=== PATIENT | female | born 1985 | race Caucasian/White ===

== ENCOUNTER 2017-07-25 05:23 | Inpatient (IN) | payer MEDICAID ==
--- NOTE | 2017-07-24 21:29 | PCM.LDHP ---
L&D History of Present Illness - General Date of Service: 07/25/17 Admit Problem/Dx: Admission Diagnosis/Problem Admission Diagnosis/Problem 07/24/17 21:14 41-2/7 week intrauterine , history of previous section with desire for repeat section. Source of Information: Patient History Limitations: Reports: No Limitations - History of Present Illness Introduction:: History of present illness: Sylvia is a 32-year-old 2 para 1001 white female who is admitted electively at 41-2/7 weeks gestational age for a repeat section. Her GRETA is 07/16/2017 is based upon a certain last menstrual period starting 10/09/2016 and supported by 3 ultrasounds. Ultrasounds done 2016, 01/12/2017 and 03/09/2017 R consistent with her LMP dating. The procedure of repeat section, its risks, benefits, alternatives and follow-up were all discussed with patient. She appears to understand and wishes to proceed. The patient had wished to do a trial labor after section to achieve a vaginal after section but had set a date by which she would undergo a repeat if she had not delivered. She has signed consent and wishes to proceed with surgery. 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 First delivery was by section for an abruption placenta, low amniotic fluid in [facility] on 01/06/2011 at 42 weeks gestational age. Her labor was 39 hours in length. Baby weighed 8 lbs. 10 oz. Was female and was named Shayy. LMP for this started on 2016, was definite, using no control time conception, periods occurring about every 28 day basis. Her first visit occurred early in the at 10-4/7 weeks on 12/22/2016. She was seen on a regular basis. Made normal weight gain 173.4 pounds up to 199 pounds for a 25.6 pound weight gain. Her vital signs remained stable throughout the course and her fundal height growth was appropriate with last fundal height at 41 cm. The baby never did descend below a -3 station. On last evaluation she was 2+ centimeters, 90% effaced, long. -4 station. During course of care she declined genetic testing. Her [place] depression screening score on 03/08/2017 was score 17/30. Patient managed this depressions symptomatology well. Her group B strep screen was negative. She had seasonal allergies. Desired to do a . Laboratory testing and showed blood to be O+ with negative antibody screen. First hemoglobin is 13.1, hematocrit was 39.1 and platelets are 224,000. Her Pap smear was negative. She is rubella immune, RPR is nonreactive. Hepatitis B surface antigen and HIV asses were negative as were the many and gonorrhea. Second trimester testing showed hemoglobin 10.3 at which time she was started on ferrous sulfate one by mouth twice a day. Questionable whether she continued this or not. Her platelet count was 255,000 and her 1 hour GTT was normal at 128. Group B strep screen was negative. Allergies: bee stings and seasonal environmental allergies. Drug allergies. Medications: 1. Budesonide 0.5 mg/2 mL inhalation suspension 2 times a day when necessary 2. Proventil inhaler up to 1-2 puffs every 4-6 hours when necessary for asthma 3. Fluticasone propionate 50 g/action one spray in each nostril twice daily 4. Calcium 500 mg tablets2 per day 5. vitamin D 2000 units daily 6. Montelukast sodium 10 mg daily 7. Albuterol sulfate inhalation nebulizer when necessary every 6 hours 8. Pro-air HFA inhalation aerosol solution every 4-6 hours 9. vitamins 1 daily 10. Folic acid 1 mg daily 11. Melatonin 5 mg Daily at Bedtime When Necessary Past medical history: 1. Anxiety/depression 2. Asthma 3. Keratosis 4. Abruption placenta 2010 5. Anemia secondary . 6. Abnormal Pap smear 2010 with HPV-high risk noted Family history: mother is alive and hasn't seen a doctor and 36 years. Father with congestive heart failure and VT with 6 bypass surgeries, diabetes type 2, COPD, peripheral artery disease, spinal stenosis, smoker. Maternal grandmother from cancer, Alzheimer's. Maternal Grandfather from bone cancer, Alzheimer's. Paternal grand mother from dementia other causes unknown.Paternal grandfather -cause unknown Social history: Patient is single, lives in [facility]. Does not use any significant loss of alcohol, drugs or tobacco. Review of systems: Skin: Negative Respiratory: Negative Cardiovascular: No chest pain or exercise intolerance Breast: Negative GI: Normal appetite : Changes since his . Neurological: Negative Muscular skeletal: Occasional swelling in her lower extremities Physical exam: First evaluation in clinic patient's height is 5 feet 4, weight was 173.4 body mass index is 29.2. On last evaluation in clinic her weight had increased to 199 pounds, blood pressure 102/66 and heart rate was 135. In general the patient is a well-developed, well-nourished, pleasant female stated age in no acute distress. Skin is warm and dry without lesions. HEENT, neck and back within normal limits. Lungs are clear with good breath sounds in all lung bhatia. Cardiovascular exam shows regular rate and rhythm without murmurs. Breast exam is not performed him and not first visit and found to be normal. Abdomen is protuberant fundal height of 41 cm. Baby in vertex presentation. Genital exam per digital evaluation shows cervix to be 2 placentas, 90% effaced , very soft, -3 station. Extremities and neurological exam are grossly within normal limits. H&P Review of Systems - Review of Systems: Review Of Systems: See Below L&D Exam - Exam Exam: See Below Problem List Initiated/Reviewed/Updated: Yes Assessment/Plan Comment:: 1. Term intrauterine at 41-2/7 weeks gestational age, history of previous section for abruptio placenta now with desire for section. Patient had attempted to but has set this as a final date to go into natural labor 2. Risk for the include: History of previous , increased distance from the hospital, anemia, asthma, seasonal allergies, 3. Group B strep screen is negative. 4. Rh+ blood Plan: 1. Scheduled repeat lower uterine segment transverse in section through Pfannenstiel skin incision under spinal anesthesia. The procedure, risks, benefits, alternatives of care and follow-up were discussed details patient. She appears understand, wishes to proceed and signed a consent 2. SCDs 3. Infection prophylaxis with Ancef 2 g IV preop 4. Preoperative labs consist of CBC, type and screen and urinalysis. 5. 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
[~2017-07-25 05:23] MED LIST: Sodium Chloride 0.9% 10 ML Syringe FLUSH PRN
[2017-07-25] MEDS: Lactated Ringers 1,000 ML IV SCH ×2 (06:05→07:00)
[2017-07-25] MEDS ORDERED: Citric Acid/Sodium Citrate Solution 30 ML Cup PO ONE (06:30)
[2017-07-25] MEDS ORDERED: Metoclopramide 10 MG/2 ML SDV IVPUSH ONE (06:30)
[2017-07-25] MEDS ORDERED: Bupivacaine 0.5% 30 ML SDV ONE (06:33)
[2017-07-25] MEDS ORDERED: ceFAZolin 1 GM Vial ONE (07:17)
[2017-07-25] MEDS ORDERED: Morphine PF 10 MG/10 ML SDV ONE (07:17)
[2017-07-25] MEDS ORDERED: Phenylephrine/Normal Saline 100 MCG/ML 10 ML Syringe ONE (07:21)
[2017-07-25] MEDS ORDERED: Oxytocin 10 Units/1 ML SDV ONE ×2 (07:21→08:48)
[2017-07-25] MEDS ORDERED: Albuterol 6.7 GM Inhaler INH PRN (07:39)
[2017-07-25] MEDS ORDERED: ALBUTEROL INH PRN (07:39)
[2017-07-25] MEDS ORDERED: ceFAZolin 2 GM in Premix Bag 1 BAG IV ONE (07:45)
[2017-07-25] MEDS ORDERED: Oxytocin/Lactated Ringers 10 UNIT/1,000 ML BAG IV SCH (07:45)
[2017-07-25] MEDS ORDERED: Budesonide 0.5 MG/2 ML Neb Susp NEB SCH (08:00)
[2017-07-25] MEDS ORDERED: Pneumococcal Polyvalent-23 Vaccine 0.5 ML SDV IM ONE (08:05)
[2017-07-25] MEDS ORDERED: Lactated Ringers 1,000 ML ONE ×2 (08:08→08:18)
[2017-07-25] MEDS ORDERED: Ketorolac 30 MG/ML SDV ONE (08:29)
[2017-07-25] MEDS ORDERED: fentaNYL 250 MCG/5 ML SDV IVPUSH PRN (08:44)
[2017-07-25] MEDS ORDERED: diphenhydrAMINE 50 MG/ML SDV IVPUSH PRN ×2 (08:44→10:10)
--- NOTE | 2017-07-25 08:46 | PCM.POSTAN ---
POST ANESTHESIA ASSESSMENT - MENTAL STATUS Mental Status: Alert, Oriented - VITAL SIGNS Pulse Rate: 82 SaO2: 98 Resp Rate: 15 Blood Pressure: 99/60 Temperature: 36.6 C - RESPIRATORY Respiratory Status: Respiratory Rate WNL, Airway Patent, O2 Saturation Stable, Supplemental Oxygen - CARDIOVASCULAR CV Status: Pulse Rate WNL, Blood Pressure Stable - GASTROINTESTINAL GI Status: No Symptoms - PAIN Pain Score: 0 - POST OP HYDRATION Hydration Status: Adequate & Stable - OBSERVATIONS Free Text/Narrative:: no anesthesia complications noted
--- NOTE | 2017-07-25 08:48 | PCM.PREANE ---
Preanesthetic Assessment - Anesthesia/Transfusion/Family Hx Anesthesia History: Prior Anesthesia Without Reaction Family History of Anesthesia Reaction: Yes Transfusion History: Prior Transfusion Without Reaction - Review of Systems General: No Symptoms Pulmonary: No Symptoms Cardiovascular: No Symptoms Gastrointestinal: No Symptoms Neurological: No Symptoms Other: Reports: None - Physical Assessment NPO Status Date: 07/25/17 NPO Status Time: 00:00 Pulse: 82 O2 Sat by Pulse Oximetry: 98 Respiratory Rate: 15 Blood Pressure: 99/60 Temperature: 36.6 C Vital Signs: Last Vital Signs Temp 36.6 C 07/25/17 08:46 Pulse 82 07/25/17 08:46 Resp 15 07/25/17 08:46 BP 99/60 07/25/17 08:46 Pulse Ox 98 07/25/17 08:46 Height: 1.6 m Weight: 93.213 kg ASA Class: 2 Mental Status: Alert & Oriented x3 Airway Class: Mallampati = 1 Dentition: Reports: Normal Dentition Thyro-Mental Finger Breadths: 3 Mouth Opening Finger Breadths: 3 ROM/Head Extension: Full Lungs: Clear to Auscultation, Normal Respiratory Effort Cardiovascular: Regular Rate, Regular Rhythm, No Murmurs - Lab Values: Laboratory Last Values WBC 8.89 K/mm3 (3.98-10.04) 07/25/17 05:50 RBC 3.78 M/mm3 (3.98-5.22) L 07/25/17 05:50 Hgb 11.3 gm/L (11.2-15.7) 07/25/17 05:50 Hct 33.6 % (34.1-44.9) L 07/25/17 05:50 MCV 88.9 fl (79.4-94.8) 07/25/17 05:50 MCH 29.9 pg (25.6-32.2) 07/25/17 05:50 MCHC 33.6 g/dl (32.2-35.5) 07/25/17 05:50 RDW Std Deviation 44.8 fL (36.4-46.3) 07/25/17 05:50 Plt Count 235 K/mm3 (182-369) 07/25/17 05:50 MPV 11.1 fl (9.4-12.3) 07/25/17 05:50 Blood Type O POSITIVE 07/25/17 05:50 Gel Antibody Screen Negative 07/25/17 05:50 - Allergies Allergies/Adverse Reactions: Allergies Allergy/AdvReac Type Severity Reaction Status Date / Time bee venom protein (honey bee) Allergy Swelling Verified 07/25/17 03:28 - Blood Blood Available: Yes Product(s) Available: PRBC - Anesthesia Plan Pre-Op Medication Ordered: Antacids - Acknowledgements Anesthesia Type Planned: Spinal Pt an Appropriate Candidate for the Planned Anesthesia: Yes Alternatives and Risks of Anesthesia Discussed w Pt/Guardian: Yes Pt/Guardian Understands and Agrees with Anesthesia Plan: Yes PreAnesthesia Questionnaire Respiratory History: Reports: Asthma Gastrointestinal History: Reports: GERD 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: , Other (See Below) Other OB/BYN History: Placental abruption Psychiatric History: Reports: Anxiety, Depression Hematologic History: Reports: Anemia, Blood Transfusion(s) Dermatologic History: Reports: Other (See Below) Other Dermatologic History: Keratosis - Infectious Disease History Infectious Disease History: Reports: Human Papilloma Virus (HPV) - SUBSTANCE USE Smoking Status *Q: Current Every Day Smoker Tobacco Use Within Last Twelve Months: Cigarettes Second Hand Smoke Exposure: No Recreational Drug Use History: Yes Recreational Drug Type: Reports: LSD (Acid), Marijuana/Hashish, Methamphetamine , Other (see below) Recreational Drug Last Use: 7 years ago - HOME MEDS Home Medications: Home Meds Albuterol Sulfate 2.5 mg IH Q4HR PRN 07/25/17 [History] Albuterol Sulfate [Proair Hfa] 8.5 gm IH Q4HR PRN 07/25/17 [History] Albuterol [Proventil HFA] 200 puff INH Q4HR PRN 07/25/17 [History] Budesonide [Pulmicort] 0.5 mg NEB BID 07/25/17 [History] Calcium Carbonate [Calcium] 500 mg PO DAILY 07/25/17 [History] Cholecalciferol (Vitamin D3) [Vitamin D3] 2,000 unit PO DAILY 07/25/17 [History] Fluticasone Propionate [Flovent Diskus] 50 mcg IH BID 07/25/17 [History] Folic Acid 1 mg PO DAILY 07/25/17 [History] Loratadine [Claritin] 10 mg PO DAILY PRN 07/25/17 [History] Melatonin 5 mg PO BEDTIME 07/25/17 [History] Montelukast Sodium 10 mg PO DAILY 07/25/17 [History] Pnv No.122/Iron/Folic Acid [ Multi Tablet] 1 each PO DAILY 07/25/17 [ History] - CURRENT (IN HOUSE) MEDS Current Meds: Current Medications Albuterol (Proventil Hfa) 8.5 gm INH Q4HR PRN PRN Reason: asthma Budesonide (Pulmicort) 0.5 mg NEB BIDRT NAI Diphenhydramine HCl (Benadryl) 25 mg IVPUSH Q6H PRN PRN Reason: Itching Fentanyl (Sublimaze) 50 mcg IVPUSH Q5M PRN PRN Reason: PAIN Lactated Ringer's (Ringers, Lactated) 1,000 mls @ 125 mls/hr IV ASDIRECTED NAI Last Admin: 07/25/17 07:00 Dose: 125 mls/hr Oxytocin/Lactated Ringer's (Pitocin In Lr 10 Units/1,000 Ml) 10 unit in 1,000 mls @ 100 mls/hr IV ASDIRECTED [facility] Montelukast Sodium (Singulair) 10 mg PO DAILY NAI Non-Formulary Medication (Albuterol) 200 puff INH Q4HR PRN PRN Reason: asthma Non-Formulary Medication (Fluticasone Propionate [Flovent]) 50 mcg IH BID NAI Sodium Chloride (Saline Flush) 10 ml FLUSH ASDIRECTED PRN PRN Reason: Keep Vein Open Discontinued Medications Bupivacaine HCl (Marcaine 0.5%) Confirm Administered Dose 30 ml .ROUTE .STK-MED ONE Stop: 07/25/17 06:34 Cefazolin Sodium (Ancef) Confirm Administered Dose 2 gm .ROUTE .STK-MED ONE Stop: 07/25/17 07:18 Citric Acid/Sodium Citrate (Bicitra Solution) 30 ml PO ONETIME ONE Stop: 07/25/17 06:31 Last Admin: 07/25/17 07:00 Dose: 30 ml Cefazolin Sodium/Dextrose 2 gm (/ Premix) 50 mls @ 100 mls/hr IV ONETIME ONE Stop: 07/25/17 08:14 Lactated Ringer's (Ringers, Lactated) Confirm Administered Dose 1,000 mls @ as directed .ROUTE .STK-MED ONE Stop: 07/25/17 08:09 Lactated Ringer's (Ringers, Lactated) Confirm Administered Dose 1,000 mls @ as directed .ROUTE .STK-MED ONE Stop: 07/25/17 08:19 Ketorolac Tromethamine (Toradol) Confirm Administered Dose 30 mg .ROUTE .STK- MED ONE Stop: 07/25/17 08:30 Metoclopramide HCl (Reglan) 10 mg IVPUSH ONETIME ONE Stop: 07/25/17 06:31 Last Admin: 07/25/17 07:00 Dose: 10 mg Morphine Sulfate (Duramorph Pf) Confirm Administered Dose 10 mg .ROUTE .STK-MED ONE Stop: 07/25/17 07:18 Oxytocin (Pitocin) Confirm Administered Dose 10 unit .ROUTE .STK-MED ONE Stop: 07/25/17 07:22 Oxytocin (Pitocin) Confirm Administered Dose 10 unit .ROUTE .STK-MED ONE Stop: 07/25/17 08:49 Phenylephrine HCl (Phenylephrine In Ns 100 Mcg/Ml) Confirm Administered Dose 1 mg .ROUTE .STK-MED ONE Stop: 07/25/17 07:22 Pneumococcal Polyvalent Vaccine (Pneumovax 23) 0.5 ml IM .ONCE ONE Stop: 07/25/17 08:06
[2017-07-25] MEDS ORDERED: Montelukast 10 MG Tab PO SCH (09:00)
[2017-07-25] MEDS ORDERED: Non-Formulary Medication 1 Each (Fluticasone Propionate [Flovent] 50 MCG) IH PRN (09:00)
--- NOTE | 2017-07-25 09:13 | PCM.OPNOTE ---
- General Post-Op/Procedure Note Date of Surgery/Procedure: 07/25/17 Operative Procedure(s): Repeat lower uterine segment transverse section through Pfannenstiel skin incision Findings: Significant scarring noted in the peritoneal cavity which precluded bringing the uterus all looked of the abdomen for closure Baby is in vertex presentation , very mild meconium-stained amniotic fluid. Baby weighed 8 lbs. 9 oz. Baby had Apgars of 8 and 9 and was born at 0803 hrs. Pre Op Diagnosis: 41-2/7 week intrauterine , history of previous section desire for repeat section Post-Op Diagnosis: Same with delivery of viable 8 lbs. 9 oz. female infant with Apgars of 8 and 9 at 0803 hrs. on 07/25/2017 Anesthesia Technique: Spinal Other Anesthesia Type: Marcaine 0.5%20 mL local Primary Surgeon: Igor Chowdhury Secondary Surgeon: Joao Anaya Anesthesia Provider: Vic Amanda Health Aid: Saira Singer Reason Health Aid Was Necessary: Quality, patient safety and retraction Role of Health Aid: Retraction, patient safety, quality of care Fluid Replacement, Intraop: 3,300 EBL in mLs: 800 Drain/Tube Comments:: Indwelling bladder catheter Complications: None Condition: Good Free Text/Narrative:: Surgery duration 7 minutes Procedure: Patient was transferred to the room and placed in a sitting position. Spinal anesthesia was administered. After confirmation of adequate anesthesia patient was placed in a supine position with a wedge under her right side to facilitate left lateral positioning. The patient was prepped and draped in usual fashion after Fishman catheter was already placed . The anesthetic was checked and found to be adequate. 20 mL of Marcaine 0.5% was injected locally in the Pfannenstiel incision site. The Pfannenstiel skin incision was then made carried down to skin subcutaneous and fascial layers. The fascia was then undermined superiorly and inferiorly to allow for adequate operating room the recti muscles midline and preperitoneal fat was bluntly dissected. Peritoneal cavity was entered longitudinally. The vesicouterine peritoneum was then incised transversely and bladder flap was developed. Myometrium was incised transversely to the level of the amniotic sac. This incision was extended bilaterally in a blunt fashion. The amniotic sac was then ruptured resulting in mildly meconium-stained amniotic fluid. A hand is placed in the low uterine segment and the baby's head was brought forth through the incision. Baby's head did not deliver real well and a vacuum extractor was used. Delivery was without problems thereafter. The baby was completely delivered using fundal pressure in a routine fashion. The nose and mouth were bulb suctioned. Baby's cord was clamped x2 cut and baby was handed off to attending traffic control officer Dr Salazar. Segment of cord was secured for testing. Placenta was expressed after cord blood was obtained. Uterus was scarred enough where externalization was not possible. The cervix was assessed and found to be dilated adequately to allow egress of blood. The uterus was closed in 2 layers. The first layer a running locked suture of 0 Monocryl, the second layer a running locked vertical mattress suture of 0 Monocryl. [id number] suture was placed at the right and of the incision to control 1 bleeder. Hemostasis confirmed at this time. Sponge instrument needle counts are correct. Once again sponge needle counts are correct. The anterior abdominal wall was closed with a #1 PDS suture from angle to angle. The subcutaneous area was found to be free of any bleeders. interrupted sutures of 3-0 Monocryl were used to reapproximate the subcutaneous layer.Skin was closed with a running subcuticular stitch of 3- 0 Monocryl in a vertical mattress suture fashion using a Franky needle. Prineo mesh/glue was then applied to further approximate the incision. It should be noted that patient received 2 g of Ancef preoperatively for infection prophylaxis and had Pitocin infused after delivery of the placenta to facilitate uterine contraction. She also had sequential compression stockings in place for DVT prophylaxis. Patient was discharged from the operating room in satisfactory condition.
[2017-07-25] MEDS ORDERED: fentaNYL 100 MCG/2 ML SDV IVPUSH PRN (09:28)
[2017-07-25] MEDS ORDERED: Albuterol 0.083% 2.5 MG/3 ML Neb Soln INH PRN (10:07)
[2017-07-25] MEDS ORDERED: ePHEDrine 50 MG/ML SDV IVPUSH PRN ×2 (10:10)
[2017-07-25] MEDS ORDERED: Docusate Sodium 100 MG Cap PO PRN (10:10)
[2017-07-25] MEDS ORDERED: Lanolin 100% Cream 7 GM Tube TOP PRN ×2 (10:10)
[2017-07-25] MEDS ORDERED: Prenatal Multivitamin with Calcium/Folic Acid/Iron Tab PO SCH (10:10)
[2017-07-25] MEDS ORDERED: Naloxone 0.4 MG/ML SDV IVPUSH PRN ×2 (10:10)
[2017-07-25] MEDS ORDERED: Ondansetron 4 MG/2 ML SDV IV PRN (10:10)
[2017-07-25] MEDS ORDERED: Dextrose 5%-Lactated Ringers 1,000 ML IV SCH ×2 (10:10)
[2017-07-25] MEDS: Simethicone 80 MG Tab.Chew PO SCH ×4 (11:27→22:03)
[2017-07-25] MEDS: diphenhydrAMINE 50 MG/ML SDV IVPUSH PRN ×2 (12:16→20:23)
[2017-07-25] MEDS: Ibuprofen 800 MG Tab PO SCH (16:00)
[2017-07-25] MEDS: Prenatal Multivitamin with Calcium/Folic Acid/Iron Tab PO SCH (20:23)
[2017-07-25] MEDS: Montelukast 10 MG Tab PO SCH (20:32)
[2017-07-26] MEDS: Ibuprofen 800 MG Tab PO SCH ×4 (00:13→22:30)
[2017-07-26] MEDS: Acetaminophen/oxyCODONE 325-5 MG Tab PO PRN ×4 (03:22→22:32)
[2017-07-26] MEDS: Simethicone 80 MG Tab.Chew PO SCH ×4 (08:17→21:17)
--- NOTE | 2017-07-26 10:04 | PCM48HPAN ---
Post Anesthesia Note - EVALUATION WITHIN 48HRS OF ANESTHETIC Vital Signs in Normal Range: Yes Patient Participated in Evaluation: Yes Respiratory Function Stable: Yes Airway Patent: Yes Cardiovascular Function Stable: Yes Hydration Status Stable: Yes Pain Control Satisfactory: Yes Nausea and Vomiting Control Satisfactory: Yes Mental Status Recovered: Yes
[2017-07-26] MEDS: Prenatal Multivitamin with Calcium/Folic Acid/Iron Tab PO SCH (21:17)
[2017-07-26] MEDS: Montelukast 10 MG Tab PO SCH (21:48)
[2017-07-27] MEDS: Acetaminophen/oxyCODONE 325-5 MG Tab PO PRN ×3 (03:10→11:07)
--- NOTE | 2017-07-27 06:44 | PCM.DCSUM1 ---
Discharge Summary - Hospital Course Free Text/Narrative:: Sylvia was admitted on 07/25/2017 for elective repeat section. Please see admission history and physical for details. We see operative report for details of surgery. She delivered a viable, byrne, female infant with Apgars of 8 and 9 and a weight of 8 lbs. 9 oz. at 0803 hrs. on 07/25/2017. Postoperatively patient has done very well. She had pain controlled with Duramorph and Motrin first 24 hours, then Motrin and Percocet thereafter. She is made good bowel, bladder, ambulatory recovery. Her vital signs been stable and follow-up CBC has been within normal limits. Patient desiring to be discharged home. - Discharge Data Discharge Date: 07/27/17 Discharge Disposition: Home, Self-Care 01 Condition: Good - Patient Summary/Data Operative Procedure(s) Performed: Repeat lower uterine segment transverse section through Pfannenstiel skin incision - Patient Instructions Diet: Regular Diet as Tolerated (Nursing diet was increased calories and calcium ) Activity: As Tolerated (No lifting greater than 15 pounds or driving a car 1 week. May take a bath after 1 week.) Driving: Do Not Drive Showering/Bathing: May Shower Wound/Incision Care: Keep Operative Site/Wound Site Clean and Dry Notify Provider of: Fever, Increased Pain, Swelling and Redness, Drainage, Nausea and/or Vomiting - Discharge Plan Home Medications: Home Meds Albuterol Sulfate 2.5 mg IH Q4HR PRN 07/25/17 [History] Albuterol Sulfate [Proair Hfa] 8.5 gm IH Q4HR PRN 07/25/17 [History] Calcium Carbonate [Calcium] 500 mg PO DAILY 07/25/17 [History] Cholecalciferol (Vitamin D3) [Vitamin D3] 2,000 unit PO DAILY 07/25/17 [History] Fluticasone Propionate [Flovent] 50 mcg IH BID PRN 07/25/17 [History] Folic Acid 1 mg PO DAILY 07/25/17 [History] Loratadine [Claritin] 10 mg PO DAILY PRN 07/25/17 [History] Melatonin 5 mg PO BEDTIME 07/25/17 [History] Montelukast Sodium 10 mg PO DAILY 07/25/17 [History] Pnv No.122/Iron/Folic Acid [ Multi Tablet] 1 each PO DAILY 07/25/17 [ History] Acetaminophen/oxyCODONE [Percocet 325-5 MG] 2 tab PO Q4H PRN #30 tablet [Rx] Ibuprofen [IJD: Ibuprofen] 800 mg PO Q8H tablet 07/27/17 [Rx] Patient Handouts: Smoking Cessation, Tips for Success, [id number], Smoking Hazards Referrals: Igor Chowdhury MD [Physician] - (Return to clinicDr. Chowdhury2 weeks.) - Discharge Summary/Plan Comment DC Time >30 min.: No Discharge Summary/Plan Comment: Discharge instructions: 1. Discharge home 2. Diet, activity and follow-up discussed with patient. Recommend nursing diet with increased calories and calcium. 3. Precautions given concern increased pain, bleeding, temperature, signs/ symptoms of DVT/PE. 4. Medications per home medication was printed, discussed with and given to the patient. 5. Return to clinic-Dr. Chowdhury-[facility] in 2 weeks. Diagnosis: Term , history of previous section-delivered by repeat section Condition: Good - Patient Data Vitals - Most Recent: Last Vital Signs Temp 36.8 C 07/27/17 03:09 Pulse 84 07/27/17 03:09 Resp 16 07/27/17 03:09 BP 112/78 07/27/17 03:09 Pulse Ox 93 L 07/27/17 03:09 Weight - Most Recent: 93.213 kg I&O - Last 24 hours: Intake & Output 07/26/17 07/26/17 07/27/17 14:59 22:59 06:59 Intake Total 120 0 Output Total 1600 Balance -1480 0 Lab Results - Last 24 hrs: Laboratory Results - last 24 hr 07/26/17 Range/Units 06:36 WBC 7.30 (3.98-10.04) K/mm3 RBC 3.11 L (3.98-5.22) M/mm3 Hgb 9.1 L (11.2-15.7) gm/L Hct 28.2 L (34.1-44.9) % MCV 90.7 (79.4-94.8) fl MCH 29.3 (25.6-32.2) pg MCHC 32.3 (32.2-35.5) g/dl RDW Std Deviation 45.7 (36.4-46.3) fL Plt Count 205 (182-369) K/mm3 MPV 10.8 (9.4-12.3) fl Neut % (Auto) 64.4 (34.0-71.1) % Lymph % (Auto) 25.9 (19.3-51.7) % Hamilton % (Auto) 7.4 (4.7-12.5) % Eos % (Auto) 1.9 (0.7-5.8) Baso % (Auto) 0.1 (0.1-1.2) % Neut # (Auto) 4.70 (1.56-6.13) K/mm3 Lymph # (Auto) 1.89 (1.18-3.74) K/mm3 Hamilton # (Auto) 0.54 H (0.24-0.36) K/mm3 Eos # (Auto) 0.14 (0.04-0.36) K/mm3 Baso # (Auto) 0.01 (0.01-0.08) K/mm3 Med Orders - Current: Current Medications Albuterol (Proventil Hfa) 0 gm INH Q4HRRT PRN PRN Reason: asthma Albuterol (Proventil Neb Soln) 2.5 mg INH Q4HRRT PRN PRN Reason: ASHTMA Diphenhydramine HCl (Benadryl) 25 mg IVPUSH Q6H PRN PRN Reason: Itching or Nausea Last Admin: 07/25/17 20:23 Dose: 25 mg Docusate Sodium (Colace) 100 mg PO Q12H PRN PRN Reason: Constipation Last Admin: 07/26/17 21:21 Dose: 100 mg Emollient Ointment (Lansinoh Hpa) 0 gm TOP ASDIRECTED PRN PRN Reason: Sore Nipples Last Admin: 07/26/17 13:14 Dose: 1 applic Ephedrine Sulfate (Ephedrine Sulfate) 5 mg IVPUSH SEECOMMENT PRN PRN Reason: Other Ibuprofen (Motrin) 800 mg PO Q8H NAI Last Admin: 07/26/17 22:30 Dose: 800 mg Montelukast Sodium (Singulair) 10 mg PO BEDTIME NAI Last Admin: 07/26/17 21:48 Dose: Not Given Naloxone HCl (Narcan) 0.1 mg IVPUSH SEECOMMENT PRN PRN Reason: Respiratory Depression Non-Formulary Medication (Fluticasone Propionate [Flovent]) 50 mcg IH BID PRN PRN Reason: SHORTNESS OF BREATH Ondansetron HCl (Zofran) 4 mg IV Q4H PRN PRN Reason: Nausea/Vomiting Oxycodone/Acetaminophen (Percocet 325-5 Mg) 2 tab PO Q4H PRN PRN Reason: Pain (moderate 4-6) Last Admin: 07/27/17 03:10 Dose: 2 tab Prenat Multivit/Barry/Iron/Folic Ac ( Plus Iron) 1 each PO BEDTIME [facility] Last Admin: 07/26/17 21:17 Dose: 1 each Simethicone (Simethicone) 80 mg PO PCBED [facility] Last Admin: 07/26/17 21:17 Dose: 80 mg Discontinued Medications Bupivacaine HCl (Marcaine 0.5%) Confirm Administered Dose 30 ml .ROUTE .STK-MED ONE Stop: 07/25/17 06:34 Last Admin: 07/25/17 07:57 Dose: 20 ml Cefazolin Sodium (Ancef) Confirm Administered Dose 2 gm .ROUTE .STK-MED ONE Stop: 07/25/17 07:18 Citric Acid/Sodium Citrate (Bicitra Solution) 30 ml PO ONETIME ONE Stop: 07/25/17 06:31 Last Admin: 07/25/17 07:00 Dose: 30 ml Diphenhydramine HCl (Benadryl) 25 mg IVPUSH Q6H PRN PRN Reason: Itching Diphenhydramine HCl (Benadryl) 25 mg IVPUSH Q6H PRN PRN Reason: Itching or Nausea Emollient Ointment (Lansinoh Hpa) 0 gm TOP ASDIRECTED PRN PRN Reason: Sore Nipples Ephedrine Sulfate (Ephedrine Sulfate) 5 mg IVPUSH SEECOMMENT PRN PRN Reason: Other Fentanyl (Sublimaze) 50 mcg IVPUSH Q5M PRN PRN Reason: PAIN Stop: 07/25/17 14:45 Fentanyl (Sublimaze) 50 mcg IVPUSH Q5M PRN PRN Reason: PAIN Stop: 07/25/17 14:45 Cefazolin Sodium/Dextrose 2 gm (/ Premix) 50 mls @ 100 mls/hr IV ONETIME ONE Stop: 07/25/17 08:14 Last Admin: 07/25/17 14:32 Dose: Not Given Lactated Ringer's (Ringers, Lactated) 1,000 mls @ 125 mls/hr IV ASDIRECTED [facility] Last Admin: 07/25/17 07:00 Dose: 125 mls/hr Oxytocin/Lactated Ringer's (Pitocin In Lr 10 Units/1,000 Ml) 10 unit in 1,000 mls @ 100 mls/hr IV ASDIRECTED [facility] Lactated Ringer's (Ringers, Lactated) Confirm Administered Dose 1,000 mls @ as directed .ROUTE .STK-MED ONE Stop: 07/25/17 08:09 Lactated Ringer's (Ringers, Lactated) Confirm Administered Dose 1,000 mls @ as directed .ROUTE .K-MED ONE Stop: 07/25/17 08:19 Dextrose/Lactated Ringer's (Dextrose 5%-Lactated Ringers) 1,000 mls @ 125 mls/ hr IV ASDIRECTED [facility] Stop: 07/25/17 18:09 Last Admin: 07/25/17 12:29 Dose: 125 mls/hr Dextrose/Lactated Ringer's (Dextrose 5%-Lactated Ringers) 1,000 mls @ 125 mls/ hr IV ASDIRECTED [facility] Stop: 07/25/17 18:09 Last Admin: 07/25/17 14:33 Dose: Not Given Ketorolac Tromethamine (Toradol) Confirm Administered Dose 30 mg .ROUTE .STK- MED ONE Stop: 07/25/17 08:30 Metoclopramide HCl (Reglan) 10 mg IVPUSH ONETIME ONE Stop: 07/25/17 06:31 Last Admin: 07/25/17 07:00 Dose: 10 mg Montelukast Sodium (Singulair) 10 mg PO DAILY [facility] Last Admin: 07/25/17 14:33 Dose: Not Given Morphine Sulfate (Duramorph Pf) Confirm Administered Dose 10 mg .ROUTE .STK-MED ONE Stop: 07/25/17 07:18 Naloxone HCl (Narcan) 0.1 mg IVPUSH SEECOMMENT PRN PRN Reason: Respiratory Depression Non-Formulary Medication (Albuterol) 200 puff INH Q4HR PRN PRN Reason: asthma Oxytocin (Pitocin) Confirm Administered Dose 10 unit .ROUTE .STK-MED ONE Stop: 07/25/17 07:22 Oxytocin (Pitocin) Confirm Administered Dose 10 unit .ROUTE .STK-MED ONE Stop: 07/25/17 08:49 Phenylephrine HCl (Phenylephrine In Ns 100 Mcg/Ml) Confirm Administered Dose 1 mg .ROUTE .STK-MED ONE Stop: 07/25/17 07:22 Pneumococcal Polyvalent Vaccine (Pneumovax 23) 0.5 ml IM .ONCE ONE Stop: 07/25/17 08:06 Last Admin: 07/25/17 20:23 Dose: 0.5 ml Prenat Multivit/Barry/Iron/Folic Ac ( Plus Iron) 1 each PO DAILY NAI Last Admin: 07/25/17 14:33 Dose: Not Given Sodium Chloride (Saline Flush) 10 ml FLUSH ASDIRECTED PRN PRN Reason: Keep Vein Open *Q Meaningful Use (DIS) - VTE *Q VTE Criteria *Q: - Stroke *Q Stroke Criteria *Q: - AMI *Q AMI Criteria *Q:
[2017-07-27] MEDS: Ibuprofen 800 MG Tab PO SCH (06:50)
[2017-07-27] MEDS: Simethicone 80 MG Tab.Chew PO SCH (10:42)
== END 2017-07-27 11:48 | disposition home or self-care (01) | DRG 766 ==
LOC: JD.OB 05:23
PROVIDERS: ADMIT Obstetrics & Gynecology; ATTEND Obstetrics & Gynecology
PROC: 10D00Z1 Extraction of Products of Conception, Low, Open Approach (ICD-10-PCS; principal; 2017-07-25)
DX: O34.211 Maternal care for low transverse scar from previous cesarean delivery (principal); N85.8 Other specified noninflammatory disorders of uterus; O48.0 Post-term pregnancy; Z3A.41 41 weeks gestation of pregnancy; Z37.0 Single live birth; Z91.030 Bee allergy status; O99.52 Diseases of the respiratory system complicating childbirth; J45.909 Unspecified asthma, uncomplicated; O99.02 Anemia complicating childbirth; D64.9 Anemia, unspecified; O77.0 Labor and delivery complicated by meconium in amniotic fluid
CPT/HCPCS: 01961; 36415; 85025; 85027; 86850; 86900; 86901; 90732; 94762; A9270-GY; J0690; J1200; J1885; J2270; J2590; J2765; J7042; J7120